=== PATIENT | female | born 1995 | race Two or more races ===

== ENCOUNTER 2021-08-15 23:40 | Inpatient (IN) | payer BC ==
[2021-08-16] MEDS ORDERED: PROMETHAZINE HCL 25 MG/1 ML VIAL IVPUSH ONE (00:49)
[2021-08-16] MEDS ORDERED: BUTORPHANOL TARTRATE 1 MG/ML VIAL IVPB ONE (00:49)
[2021-08-16] MEDS ORDERED: AMPICILLIN - 2 GM in SODIUM CHLORIDE 100 ML IVPB ONE (00:50)
[2021-08-16] MEDS ORDERED: ELECTROLYTE-148 SOLN 1,000 ML IV SCH ×2 (01:00→04:30)
[2021-08-16] MEDS ORDERED: AMPICILLIN SODIUM 2 GM VIAL ONE (01:04)
[2021-08-16 01:41] LABS: BASO % 0.2 % (0-2.0); EOS % 0.5 % (0-4.5); HEMATOCRIT 39.1 % (32.4-45.2); HEMOGLOBIN 13.6 GM/dL (10.7-15.3); LYMPH % 11.3 % (8-40); MCH 30.8 pg (25.7-33.7); MCHC 34.7 g/dl (32.0-36.0); MEAN CELL VOLUME 88.9 fl (80-96); MEAN PLT VOLUME 9.5 fl (7.5-11.1); MONO % 6.1 % (3.8-10.2); NEUT % 81.9 % (42.8-82.8); PLATELET COUNT 195 10^3/uL (134-434)
[2021-08-16 01:46] VITALS: BMI 30.6
[2021-08-16] MEDS ORDERED: BUTORPHANOL TARTRATE 2 MG/ML VIAL ONE (01:50)
[2021-08-16] MEDS ORDERED: PROMETHAZINE HCL 25 MG/1 ML VIAL ONE (01:50)
[2021-08-16 02:02] LABS: ACTIVATED PTT 30.4 SECONDS (25.2-36.5); PROTHROMBIN TIME (PATIENT) 11.5 SEC (9.7-13.0)
[2021-08-16 02:07] LABS: BLOOD UREA NITROGEN 8.5 mg/dL (7-18); CALCIUM 9.3 mg/dL (8.5-10.1)
[2021-08-16 02:10] LABS: CREATININE 0.5 mg/dL (0.55-1.3)
[2021-08-16] MEDS ORDERED: FENTANYL/BUPIVACAINE/NS/PF - PCEA - 50 ML DISP.SYRIN EP ONE (03:16)
[2021-08-16] MEDS ORDERED: OXYTOCIN 20 UNITS in 0.9% NS 20 UNIT/1,000 ML INFUS.BAG IV ONE ×2 (03:17→04:23)
[2021-08-16] MEDS ORDERED: BUPIVACAINE HCL/PF 0.25% (2.5MG/ML) 10 ML VIAL ONE (03:22)
[2021-08-16] MEDS ORDERED: LIDOCAINE HCL/EPINEPHRINE/PF 20 ML VIAL ONE (03:33)
[2021-08-16] MEDS ORDERED: NALOXONE HCL 0.4 MG/ML VIAL IVPUSH PRN (03:53)
[2021-08-16] MEDS ORDERED: FENTANYL/BUPIVACAINE/NS/PF - PCEA - 50 ML DISP.SYRIN EP SCH (04:00)
[2021-08-16] MEDS ORDERED: OXYTOCIN 30 UNITS in 0.9% NS 30 UNIT/500 ML INFUS.BAG IVPB ONE (04:16)
[2021-08-16] MEDS ORDERED: LIDOCAINE HCL 1% PRESERVATIVE FREE - 30ML VIAL ONE (04:23)
[2021-08-16] MEDS ORDERED: BISACODYL 10 MG SUPP.RECT RC PRN (04:24)
[2021-08-16] MEDS ORDERED: BENZOCAINE 20% 57 GM BOTTLE TP PRN (04:24)
[2021-08-16] MEDS ORDERED: ACETAMINOPHEN 325 MG TABLET (FP) PO PRN (04:24)
[2021-08-16] MEDS ORDERED: BENZOCAINE 28 GM HEMORRHOIDAL OINTMENT TP PRN (04:24)
[2021-08-16] MEDS ORDERED: METHYLERGONOVINE MALEATE 0.2 MG/1 ML AMP IM PRN (04:24)
[2021-08-16] MEDS ORDERED: oxyCODONE HCL 5 MG TABLET PO PRN (04:24)
[2021-08-16] MEDS ORDERED: WITCH HAZEL 50% (TUCKS) 40 PAD/JAR PAD TP PRN (04:24)
[2021-08-16] MEDS ORDERED: OXYTOCIN 20 UNITS in 0.9% NS 20 UNIT/1,000 ML INFUS.BAG IV SCH (04:30)
[2021-08-16] MEDS ORDERED: AMPICILLIN SODIUM 1 GM VIAL ONE (04:37)
[2021-08-16] MEDS ORDERED: OXYTOCIN 30 UNITS in 0.9% NS 30 UNIT/500 ML INFUS.BAG IVPB SCH (04:45)
[2021-08-16] MEDS: AMPICILLIN - 1 GM in SODIUM CHLORIDE 100 ML IVPB SCH ×2 (04:50→19:41)
[2021-08-16 10:17] LABS: HIV INTERPRETATION NEGATIVE (NEGATIVE)
[2021-08-16] MEDS: PRENATAL VITAMINS W/ FOLIC ACID TABLET (FP) PO SCH (11:25)
[2021-08-16] MEDS: FERROUS SO4 325 MG TABLET (FP) PO SCH ×3 (11:25→17:54)
[2021-08-16 12:19] LABS: CORD BASE EXCESS -9.4 mmol/L (0-2); CORD HCO3 19.3 mmHg (20-29); CORD PCO2 51.1 mmHg (30-78); CORD pH 7.194 (7.14-7.44)
[2021-08-16] MEDS: IBUPROFEN 600 MG TABLET (FP) PO PRN (17:54)
[2021-08-17] MEDS: FERROUS SO4 325 MG TABLET (FP) PO SCH ×3 (08:51→17:29)
[2021-08-17 09:25] LABS: BASO % 0.2 % (0-2.0); EOS % 0.7 % (0-4.5); HEMATOCRIT 32.5 % (32.4-45.2); HEMOGLOBIN 11.1 GM/dL (10.7-15.3); LYMPH % 10.8 % (8-40); MCH 31.4 pg (25.7-33.7); MCHC 34.1 g/dl (32.0-36.0); MEAN PLT VOLUME 9.4 fl (7.5-11.1); NEUT % 83.3 % (42.8-82.8); PLATELET COUNT 191 10^3/uL (134-434); RBC 3.54 M/mm3 (3.60-5.2); RDW 14.5 % (11.6-15.6)
[2021-08-17] MEDS: IBUPROFEN 600 MG TABLET (FP) PO PRN (10:08)
[2021-08-17] MEDS: PRENATAL VITAMINS W/ FOLIC ACID TABLET (FP) PO SCH (10:09)
[2021-08-17] MEDS ORDERED: SENNOSIDES/DOCUSATE COMBO (SENNA PLUS) TABLET (UD) PO PRN (22:00)
[2021-08-18] MEDS: IBUPROFEN 600 MG TABLET (FP) PO PRN ×2 (03:25→09:11)
[2021-08-18] MEDS: PRENATAL VITAMINS W/ FOLIC ACID TABLET (FP) PO SCH (09:11)
[2021-08-18] MEDS: FERROUS SO4 325 MG TABLET (FP) PO SCH (09:11)
[2021-08-18 09:35] VITALS: BP 113/77; PULSE 105; TEMP 97.9
== END 2021-08-18 10:40 | disposition home or self-care (01) | DRG 807 ==
LOC: JDEL 23:40 → JLDR 08-16 00:35 → J3W 08-16 09:35
PROVIDERS: ADMIT Obstetrics & Gynecology; ATTEND Obstetrics & Gynecology
PROC: 10E0XZZ Delivery of Products of Conception, External Approach (ICD-10-PCS; principal; 2021-08-16)
PROC: 0UQG7ZZ Repair Vagina, Via Natural or Artificial Opening (ICD-10-PCS; 2021-08-16)
PROC: 0W8NXZZ Division of Female Perineum, External Approach (ICD-10-PCS; 2021-08-16)
DX: O71.4 Obstetric high vaginal laceration alone (principal); Z37.0 Single live birth; Z3A.39 39 weeks gestation of pregnancy; Z22.330 Carrier of Group B streptococcus
CPT/HCPCS: 36415; 36600; 59409; 80048; 82803; 85025; 85610; 85730; 86780; 86850; 86900; 86901; 87389; C9803; U0003; U0005

== ENCOUNTER 2024-03-03 19:00 | Inpatient (IN) | payer BC ==
[2024-03-03] MEDS ORDERED: BUTORPHANOL TARTRATE 1 MG/ML VIAL IVPB PRN (19:34)
[2024-03-03 19:59] LABS: BASO % 0.3 % (0-2.0); EOS % 1.3 % (0-4.5); HEMATOCRIT 35.8 % (32.4-45.2); HEMOGLOBIN 12.2 GM/dL (10.7-15.3); LYMPH % 15.4 % (8-40); MCH 30.2 pg (25.7-33.7); MCHC 34.2 g/dl (32.0-36.0); MEAN CELL VOLUME 88.4 fl (80-96); MONO % 8.1 % (3.8-10.2); NEUT % 74.9 % (42.8-82.8); PLATELET COUNT 190 10^3/uL (134-434); RBC 4.05 M/mm3 (3.60-5.2); RDW 14.1 % (11.6-15.6); WHITE BLOOD COUNT 8.8 K/mm3 (4.0-10.0)
[2024-03-03] MEDS ORDERED: OXYTOCIN 30 UNITS in 0.9% NS 30 UNIT/500 ML INFUS.BAG IVPB ONE (20:02)
[2024-03-03 20:06] LABS: INR 0.94 (0.83-1.09); PROTHROMBIN TIME (PATIENT) 10.8 SEC (9.7-13.0)
[2024-03-03 20:09] VITALS: BMI 34.0
[2024-03-03 20:09] LABS: ACTIVATED PTT 27.6 SECONDS (25.2-36.5)
[2024-03-03] MEDS: ELECTROLYTE-148 SOLN 1,000 ML IV SCH (20:10)
[2024-03-03] MEDS: OXYTOCIN 30 UNITS in 0.9% NS 30 UNIT/500 ML INFUS.BAG IVPB SCH (20:11)
[2024-03-03 20:16] LABS: POTASSIUM 3.8 mmol/L (3.5-5.1)
[2024-03-03 20:18] LABS: BLOOD UREA NITROGEN 12.5 mg/dL (7-18); CALCIUM 8.3 mg/dL (8.5-10.1)
[2024-03-03 20:21] LABS: CREATININE 0.6 mg/dL (0.55-1.3)
[2024-03-03 21:18] LABS: HIV INTERPRETATION NEGATIVE (NEGATIVE)
[2024-03-04] MEDS ORDERED: FENTANYL/BUPIVACAINE/NS/PF - PCEA - 50 ML DISP.SYRIN EP ONE ×3 (00:20→10:59)
[2024-03-04] MEDS: FENTANYL/BUPIVACAINE/NS/PF - PCEA - 50 ML DISP.SYRIN EP SCH (00:45)
[2024-03-04] MEDS ORDERED: NALOXONE HCL 0.4 MG/ML VIAL IVPUSH PRN (01:04)
[2024-03-04] MEDS: PROMETHAZINE HCL 25 MG/1 ML VIAL IVPB ONE (06:56)
[2024-03-04] MEDS ORDERED: BUPIVACAINE HCL/PF 0.25% (2.5MG/ML) 10 ML VIAL ONE (11:28)
[2024-03-04] MEDS ORDERED: METHYLERGONOVINE MALEATE 0.2 MG/1 ML AMP IM PRN (11:29)
[2024-03-04] MEDS ORDERED: oxyCODONE HCL 5 MG TABLET PO PRN (11:29)
[2024-03-04] MEDS ORDERED: BENZOCAINE 28 GM HEMORRHOIDAL OINTMENT TP PRN (11:29)
[2024-03-04] MEDS ORDERED: BENZOCAINE 20% 57 GM BOTTLE TP PRN (11:29)
[2024-03-04] MEDS ORDERED: ACETAMINOPHEN 325 MG TABLET (FP) PO PRN (11:29)
[2024-03-04] MEDS ORDERED: BISACODYL 10 MG SUPP.RECT RC PRN (11:29)
[2024-03-04] MEDS ORDERED: WITCH HAZEL 50% (TUCKS) 40 PAD/JAR PAD TP PRN (11:29)
[2024-03-04] MEDS: OXYTOCIN 20 UNITS in 0.9% NS 20 UNIT/1,000 ML INFUS.BAG IV SCH (14:30)
[2024-03-04 15:09] LABS: CORD BASE EXCESS -8.5 mmol/L (0-2); CORD HCO3 22.1 mmHg (20-29); CORD PCO2 66.6 mmHg (30-78); CORD pH 7.139 (7.14-7.44)
[2024-03-04 15:10] LABS: CORD BASE EXCESS -5.3 mmol/L (0-2); CORD HCO3 20.9 mmHg (20-29); CORD PCO2 42.9 mmHg (30-78); CORD pH 7.305 (7.14-7.44)
[2024-03-04] MEDS ORDERED: IBUPROFEN 600 MG TABLET (FP) PO ONE (16:21)
[2024-03-04] MEDS: IBUPROFEN 600 MG TABLET (FP) PO PRN (16:25)
[2024-03-04] MEDS: FERROUS SO4 325 MG TABLET (FP) PO SCH (16:50)
[2024-03-04] MEDS: SENNOSIDES/DOCUSATE COMBO (SENNA PLUS) TABLET (UD) PO PRN (21:35)
[2024-03-05 09:08] LABS: BASO % 0.3 % (0-2.0); EOS % 1.7 % (0-4.5); HEMATOCRIT 30.1 % (32.4-45.2); HEMOGLOBIN 10.2 GM/dL (10.7-15.3); LYMPH % 12.5 % (8-40); MCH 30.5 pg (25.7-33.7); MCHC 33.7 g/dl (32.0-36.0); MEAN CELL VOLUME 90.5 fl (80-96); MEAN PLT VOLUME 10.2 fl (7.5-11.1); MONO % 6.1 % (3.8-10.2); NEUT % 79.4 % (42.8-82.8); PLATELET COUNT 163 10^3/uL (134-434); RBC 3.33 M/mm3 (3.60-5.2); RDW 14.7 % (11.6-15.6); WHITE BLOOD COUNT 11.4 K/mm3 (4.0-10.0)
[2024-03-05] MEDS: PRENATAL VITAMINS W/ FOLIC ACID TABLET (FP) PO SCH (09:37)
[2024-03-06 11:20] VITALS: BP 106/69; PULSE 78; RESP 16; TEMP 98.2
== END 2024-03-06 11:15 | disposition home or self-care (01) | DRG 807 ==
LOC: JLDR 19:00 → J3W 03-04 16:34
PROVIDERS: ADMIT Obstetrics & Gynecology; ATTEND Obstetrics & Gynecology
PROC: 10E0XZZ Delivery of Products of Conception, External Approach (ICD-10-PCS; principal; 2024-03-04)
PROC: 0KQM0ZZ Repair Perineum Muscle, Open Approach (ICD-10-PCS; 2024-03-04)
PROC: 0W8NXZZ Division of Female Perineum, External Approach (ICD-10-PCS; 2024-03-04)
DX: O70.1 Second degree perineal laceration during delivery (principal); Z37.0 Single live birth; Z3A.39 39 weeks gestation of pregnancy
CPT/HCPCS: 36415; 36600; 59409; 80048; 82803; 85025; 85610; 85730; 86780; 86803; 86850; 86900; 86901; 87389; 88305-TC